=== PATIENT | male | born 2000 | race Two or more races ===

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

== ENCOUNTER 2023-11-25 17:38 | Emergency (ER) | payer OTHER ==
--- NOTE | 2023-11-25 18:01 | ED ---
Male Urogenital HPI - General Source: patient, RN notes reviewed Mode of arrival: ambulatory Limitations: no limitations <Meena Canela - Last Filed: 11/25/23 17:58> - General Source: RN notes reviewed, old records reviewed Mode of arrival: ambulatory Limitations: no limitations - History of Present Illness MD Complaint: testicle pain, testicle swelling -: hour(s) Location: right testicle, left testicle Radiation: none Severity: moderate Severity scale (1-10): 5 Consistency: constant Improves with: none Worsens with: none Reports: denies other symptoms <Musa Izquierdo - Last Filed: 12/06/23 10:44> - General Chief complaint: Urogenital Stated complaint: Pain in L testicle Time Seen by Provider: 11/25/23 17:48 - History of Present Illness Initial comments: Quick [id number] male presenting with left testicular pain x 4 hours. States pain was sudden in onset and describes pain as feeling like he was punched in the testicle. Admits mild swelling to the left testicle only but denies any discoloration. He admits tenderness of the left testicle as well. States pain has improved slightly from onset. Denies any other symptoms such as vomiting, fever, dysuria, urinary urgency, urinary frequency, or rashes. (Meena Canela) This is a 23-year-old male to the ER for evaluation of testicular pain, denying any dysuria or other complaints (Musa Izquierdo) - Related Data Allergies Allergy/AdvReac Type Severity Reaction Status Date / Time gluten Allergy Nausea & Verified 11/25/23 17:46 Vomiting Review of Systems ROS Other: All systems not noted in ROS Statement are negative. <Meena Canela - Last Filed: 11/25/23 17:58> ROS Other: All systems not noted in ROS Statement are negative. <Musa Izquierdo - Last Filed: 12/06/23 10:44> ROS Statement: Those systems with pertinent positive or pertinent negative responses have been documented in the HPI. Past Medical History Past Medical History: No Reported History Additional Past Medical History / Comment(s): Celiacs History of Any Multi-Drug Resistant Organisms: None Reported Past Surgical History: Hernia Repair Past Psychological History: No Psychological Hx Reported Past Alcohol Use History: None Reported Past Drug Use History: None Reported <Meena Canela - Last Filed: 11/25/23 17:58> General Exam Limitations: no limitations <Meena Canela - Last Filed: 11/25/23 17:58> General appearance: alert, in no apparent distress Head exam: Present: atraumatic, normocephalic, normal inspection Eye exam: Present: normal appearance, PERRL, EOMI. Absent: scleral icterus, conjunctival injection, periorbital swelling ENT exam: Present: normal exam, mucous membranes moist Neck exam: Present: normal inspection. Absent: tenderness, meningismus, lymphadenopathy Respiratory exam: Present: normal lung sounds bilaterally. Absent: respiratory distress, wheezes, rales, rhonchi, stridor Cardiovascular Exam: Present: regular rate, normal rhythm, normal heart sounds. Absent: systolic murmur, diastolic murmur, rubs, gallop, clicks GI/Abdominal exam: Present: soft, normal bowel sounds. Absent: distended, tenderness, guarding, rebound, rigid Extremities exam: Present: normal inspection, full ROM, normal capillary refill. Absent: tenderness, pedal edema, joint swelling, calf tenderness Back exam: Present: normal inspection Neurological exam: Present: alert, oriented X3, CN II-XII intact Psychiatric exam: Present: normal affect, normal mood Skin exam: Present: warm, dry, intact, normal color. Absent: rash <Musa Izquierdo - Last Filed: 12/06/23 10:44> - General Exam Comments Initial Comments: Visual Physical Exam Vital signs reviewed General: Well-appearing, nontoxic, no acute distress. Head: Normocephalic, atraumatic Eyes: PERRLA, EOMI ENT: Airway patent Chest: Nonlabored breathing Skin: No visual rash, normal skin tone Neuro: Alert and oriented 3 Musculoskeletal: No gross abnormalities (Meena Canela) Course <Muas Izquierdo - Last Filed: 12/06/23 10:44> Vital Signs 11/25/23 17:43 Temperature 98.4 F Pulse Rate 82 Respiratory 16 Rate Blood Pressure 100/72 O2 Sat by Pulse 99 Oximetry - Reevaluation(s) Reevaluation #1: Medical records reviewed (Musa Izquierdo) Reevaluation #2: Patient symptoms improved (Musa Izquierdo) Reevaluation #3: Informed of results questions answered (Musa Izquierdo) Reevaluation #4: Was pt. sent in by a medical professional or institution (JOVANY Lyons, CASINO INVESTIGATOR, urgent care, hospital, or intermediate...) When possible be specific @ -no Did you speak to anyone other than the patient for history (EMS, parent, family, police, friend...)? What history was obtained from this source @ -no Did you review nursing and triage notes (agree or disagree)? Why? @ -agree Are old charts reviewed (outside hosp., previous admission, EMS record, old EKG, old radiological studies, urgent care reports/EKG's, intermediate records)? Report findings @ -yes Differential Diagnosis (chest pain, altered mental status, abdominal pain women, abdominal pain men, vaginal bleeding, weakness, fever, dyspnea, syncope, headache, dizziness, GI bleed, back pain, seizure, CVA, palpatations, mental health, musculoskeletal)? @ -prior EKG interpreted by me (3pts min.). @ -no X-rays interpreted by me (1pt min.). @ -no CT interpreted by me (1pt min.). @ -no U/S interpreted by me (1pt. min.). @ -yes negative for acute disease What testing was considered but not performed or refused? (CT, X-rays, U/S, labs)? Why? @ -none What meds were considered but not given or refused? Why? @ -none Did you discuss the management of the patient with other professionals (professionals i.e. JOVANY Lyons, CASINO INVESTIGATOR, lab, RT, psych nurse, vp digital marketing social media and crm, refund clerk, teacher, forward air controller/air officer, case picker)? Give summary @ -no Was smoking cessation discussed for >3mins.? @ -no Were there social determinants of health that impacted care today? How? (Homelessness, low income, unemployed, alcoholism, drug addiction, transportation, low edu. Level, literacy, decrease access to med. care, [facility], rehab)? @ -none Was there de-escalation of care discussed even if they declined (Discuss DNR or withdrawal of care, Hospice)? DNR status @ -no What co-morbidities impacted this encounter? (DM, HTN, Smoking, COPD, CAD, Cancer, CVA, ARF, Chemo, Hep., AIDS, mental health diagnosis, sleep apnea, morbid obesity)? @ -none Was patient admitted / discharged? Hospital course, mention meds given and route, prescriptions, significant lab abnormalities, going to OR and other pertinent info. @ - 23 male to ER for some onset of scrotal pain. No acute findings here in the ER and can be discharged home Discharged Was critical care preformed (if so, how long)? @ -no Undiagnosed new problem with uncertain prognosis? @ -no Drug Therapy requiring intensive monitoring for toxicity (Heparin, Nitro, Insulin, Cardizem)? @ -no Were any procedures done? @ -no Diagnosis/symptom? @ -Scrotal pain Acute, or Chronic, or Acute on Chronic? @ -Acute Uncomplicated (without systemic symptoms) or Complicated (systemic symptoms)? @ -Complicated Side effects of treatment? @ -no Exacerbation, Progression, or Severe Exacerbation? @ -exacerbation Poses a threat to life or bodily function? How? (Chest pain, [place], [place], pneumonia, PE, COPD, DKA, ARF, appy, cholecystitis, CVA, Diverticulitis, Homicidal, Suicidal, threat to staff... and all critical care pts) @ -yes significant threat of testicular torsion (Musa Izquierdo) Reevaluation #5: Differential Abdominal Pain Men: Appendicitis, cholecystitis, diverticulosis, ischemic bowel, pancreatitis, hepatitis, UTI, gastroenteritis, AAA, incarcerated hernia, bowel obstruction, constipation, inflammatory bowel, hepatitis, peptic ulcer disease, splenic infarction, perforated viscus, testicular torsion, this is not meant to be an all-inclusive list (Musa Izquierdo) Medical Decision Making <Meena Canela - Last Filed: 11/25/23 17:58> - Radiology Data Radiology results: report reviewed (Ultrasound scrotum negative for acute disease), image reviewed <Musa Izquierdo - Last Filed: 12/06/23 10:44> - Medical Decision Making I completed the quick note portion of this chart signed Meena Canela PA-C (Meena Canela) 23 male to ER for some onset of scrotal pain. No acute findings here in the ER and can be discharged home (Musa Izquierdo) - Lab Data Lab Results 11/25/23 Range/Units 20:10 Urine Color Colorless Urine Appearance Clear (Clear) Urine pH 6.5 (5.0-8.0) Ur Specific [place] 1.008 (1.001-1.035) Urine Protein Negative (Negative) Urine Glucose (UA) Negative (Negative) Urine Ketones 1+ H (Negative) Urine Blood Negative (Negative) Urine Nitrite Negative (Negative) Urine Bilirubin Negative (Negative) Urine Urobilinogen <2.0 (<2.0) mg/dL Ur Leukocyte Esterase Negative (Negative) Disposition <Meena Canela - Last Filed: 11/25/23 17:58> Is patient prescribed a controlled substance at d/c from ED?: No Time of Disposition: 20:05 <Musa Izquierdo - Last Filed: 12/06/23 10:44> Clinical Impression: Scrotal pain Disposition: HOME SELF-CARE Condition: Good Instructions (If sedation given, give patient instructions): Testicle Pain (ED), Scrotal Pain (ED) Referrals: Charley Najera DO [Primary Care Provider] - 1-2 days
[2023-11-25 18:28] VITALS: BP 100/72; PULSE 82; RESP 16; TEMP 98.4
--- NOTE | 2023-11-25 18:58 | US ---
EXAMINATION TYPE: US scrotum with doppler. Grayscale and color Doppler Duplex imaging performed of shamar salgado scrotum. DATE OF EXAM: 11/25/2023 COMPARISON: NONE CLINICAL INDICATION: Male, 23 years old with history of left testicular pain; Left testicular pain si nce 2pm. Prior inguinal hernia repair EXAM MEASUREMENTS: TESTICLES: Right Testicle: 4.6 x 1.9 x 3.4 cm Left Testicle: 4.4 x 2.3 x 3.6 cm EPIDIDYMIS HEAD: Right Epididymis: 1.1 x 0.9 cm Left Epididymis: 0.8 x 0.9 cm Doppler performed to assess for testicular vascularity; good bilateral color flow and waveforms are s een. There is no evidence of testicular torsion. Presence of hydroceles: No Presence of varicoceles: No IMPRESSION: 1. Appropriate arterial and venous spectral waveforms to the testes. 2. No evidence for intratesticular mass.
[2023-11-25 20:22] LABS: Appearance,Urine Clear (Clear); Bilirubin,Urine Negative (Negative); Blood,Urine Negative (Negative); Color,Urine Colorless; Glucose,Urine (UA) Negative (Negative); Ketones,Urine 1+ (Negative); Leukocyte Esterase,Urine Negative (Negative); Nitrite,Urine Negative (Negative); PH, Urine 6.5 (5.0-8.0); Protein,Urine Negative (Negative); Specific Gravity,Urine 1.008 (1.001-1.035); Urobilinogen,Urine <2.0 mg/dL (<2.0)
== END 2023-11-25 20:48 | disposition home or self-care (01) ==
LOC: EC 17:38
DX: N50.82 Scrotal pain (principal); Z91.018 Allergy to other foods
CPT/HCPCS: 76870; 81003; 93975; 99284